=== PATIENT | female | born 1975 | race Caucasian/White ===

== ENCOUNTER 2019-04-16 17:22 | Emergency (ER) | payer MEDICAID, SELFPAY ==
[2019-04-16 17:35] VITALS: BP 136/89; PULSE 86; RESP 18; TEMP 36.5; O2SAT 98
[2019-04-16] MEDS: Ketorolac 30 MG/ML VIAL IVP (18:20)
--- NOTE | 2019-04-16 18:23 | DI.CT_ITS ---
EXAM: CT HEAD WO CLINICAL HISTORY: headache severe. TECHNIQUE: Imaging Protocol: Axial computed tomography images with coronal and sagittal reformatted images were created and reviewed COMPARISON: No exams were available for comparison FINDINGS: Ventricles and Extra axial spaces: Normal in size and morphology for the patient's age. Hemorrhage: None. Cerebral parenchyma: Normal. Midline shift: None. Brainstem/Cerebellum: Normal. Calvarium: Normal. Visualized Paranasal sinuses/Mastoids: Clear. IMPRESSION: Normal CT of the head. DATA REPOSITORY: All CT scans at this facility are submitted to the National Radiology Data Registry (NRDR) Dose Index Registry (DIR) with the [employer] ([employer]). RADIATION OPTIMIZATION: All CT scans at this facility use at least one of these dose optimization te chniques: automated exposure control; mA and/or kV adjustment per patient size (includes targeted exa ms where dose is matched to clinical indication); or iterative reconstruction.
--- NOTE | 2019-04-16 18:45 | DI.VRAD_ITS ---
PROCEDURE INFORMATION: Exam: CT Head Without Contrast Exam date and time: 04/16/2019 6:33 PM Age: 43 years old Clinical indication: Headache severe TECHNIQUE: Imaging protocol: Computed tomography of the head without contrast. Radiation optimization: All CT scans at this facility use at least one of these dose optimization techniques: automated exposure control; mA and/or kV adjustment per patient size (includes targeted exams where dose is matched to clinical indication); or iterative reconstruction. COMPARISON: No relevant prior studies available. FINDINGS: Brain: No intracranial hemorrhage or extra-axial fluid collection. No evidence of mass effect or midline shift. Riddle-white matter differentiation is intact. Ventricles: No ventriculomegaly. Bones/joints: No acute osseus lesion or fracture. Sinuses: Unremarkable as visualized. Mastoid air cells: Unremarkable. Soft tissues: Unremarkable. IMPRESSION: No acute intracranial pathology. Dictated and Authenticated by: Juan J Nieves MD. Ordering:PEGGY Ruth MD
[2019-04-16] MEDS: Normal Saline 1,000 ML 1000 ML IV (20:03)
--- NOTE | 2019-04-16 20:17 | ED.GENADUL_ITS ---
Discharge Plan Disposition Patient Disposition: HOME Condition: Stable Discharge Details Chief Complaint: Headache Clinical Impression: Headache, Hypotensive episode Primary Care Provider: None,None ED Provider: Faraz Caldwell Home Meds and New Rx's Prescriptions: No Action naproxen sodium [Aleve] 220 mg Capsule 440 mg PO PRN PRNRF: 0 Discharge Instructions Instructions: General Headache (ED) Additional Instructions: Drink plenty of fluid to stay hydrated. Rest over the next few days. Take Aleve or ibuprofen for headache. Dose according to label. Please contact your primary care physician to arrange follow-up. Call tomorrow. Return to the ER for any worsening or new concerning symptoms. Referrals: Kourtney Kruse [Emergency Nurse] - Discharge Data Discharge Date/Time-TO BE ENTERED AT DEPARTURE: 04/16/19 21:40 Medical Decision Making 20:20 -- 43-year-old female here with sudden onset severe headache yesterday, persistent headache overnight and then another severe episode today. Patient is neurologically intact. Hemodynamically stable. No fever or neck stiffness to suggest meningitis. Concern for potential subarachnoid hemorrhage. CT of the head was reviewed and interpreted by radiology: Negative for acute process. I reviewed the risk benefits of lumbar puncture with the patient. Patient provided informed consent to lumbar puncture. Lumbar puncture was performed and complicated by vagal response with hypotension at end of procedure. Patient's blood pressure did drop to 50 systolic. She was given 1 L crystalloid and BP responded. Patient maintained mentation during hypotensive episode. -- Patient reassessed and remains stable. CSF not consistent with SAH. Plan to ambulate and reassess. -- Patient reassessed and stable. Patient was encouraged to follow-up with PCP and to return for any worsening or new concerning symptoms. HPI General Mode of arrival: ambulatory . Date/Time Provider Initiated Documentation: 04/16/19 17:39 . Limitations to Documentation: no limitations . Information obtained by: patient . HPI Narrative: 43-year-old female presents with chief complaint of headache. Headache started suddenly yesterday around 7:30 PM. When headache came on it was severe 10 out of 10 pain. Pain felt like a squeezing pressure. Severe headache lasted about 30 minutes and then improved to mild headache which persisted through the night and earlier today. She had another 5-minute episode of severe headache around 4:00 today. She currently has moderate discomfort. Headache is localized to diffuse head. She has associated facial pain. No associated visual change. No numbness or weakness. No neck stiffness. No fevers. Patient does not typically have headaches and has never had a headache this severe. Related Data Home Medications Medication Instructions Recorded Confirmed naproxen sodium [Aleve] 440 mg PO PRN PRN 04/16/19 04/16/19 Allergies Allergy/AdvReac Type Severity Reaction Status Date / Time cephalexin [From Keflex] Allergy Unverified 04/16/19 17:44 General Stated Complaint: Headache JOAN: 2 Review of Systems All systems reviewed & are unremarkable except as noted in HPI and below Constitutional Constitutional: Denies fever(s) Neurologic Neurologic: Reports as per HPI [facility] Social History Smoking/Tobacco Use Status: Current every day Tobacco Type: cigarettes Alcohol Intake: current Alcohol Intake frequency: a few times a month Substance use type: does not use Do you feel safe at home: Yes Do you feel safe in your relationship?: Yes Exam Const General: cooperative and no acute distress HENMT Head: normocephalic and atraumatic Mouth: moist mucous membranes Eyes Conjunctivae: normal conjunctivae Sclera: normal sclerae Pupils: PERRL EOM: EOM intact bilaterally Direct ophthalmoscopy: normal light reflex and no papilledema Neck Neck: no meningeal signs, trachea midline and supple Resp Auscultation: clear to auscultation bilaterally, no rales, no rhonchi and no wheezes Cardio Jugular venous pressure: no JVD Rate: regular rate and not tachycardic Rhythm: regular rhythm GI Palpation: soft, not firm, no guarding, no masses, not rigid and nontender Skin General skin exam: no rashes or lesions noted Neuro General: alert, awake, oriented x3 and tone normal Cranial Nerves: CN's II-XI intact bilaterally Cognition: normal cognition Speech: speech normal Motor: strength 5/5 throughout Sensory Exam: no sensory deficits noted Extrem General: no edema Psych Appearance: grossly normal Mental Status: mental status grossly normal Speech and Movement: speech and movement normal Course Vital Signs Vital signs: Vital Signs Temperature 36.5 C 04/16/19 17:35 Pulse 86 04/16/19 17:35 Respiratory Rate 18 04/16/19 17:35 Blood Pressure 136/89 04/16/19 17:35 Pulse Oximetry 98 04/16/19 17:35 Temperature 36.5 C 04/16/19 17:35 Temperature Source Skin 04/16/19 17:35 Pulse 86 04/16/19 17:35 Respiratory Rate 18 04/16/19 17:35 Respiratory Effort Non-Labored 04/16/19 17:40 Blood Pressure 136/89 04/16/19 17:35 Blood Pressure Position Sitting 04/16/19 17:35 Pulse Oximetry 98 04/16/19 17:35 Oxygen Delivery Method Room Air 04/16/19 17:35 Oxygen Flow Rate 0 04/16/19 17:35 Pain Level 3 04/16/19 17:41 Lab/Test Results Lab/Test Results: 04/16/19 20:16 Cerebrospinal Fluid Body Fluid Culture - Pending 04/16/19 20:16 Cerebrospinal Fluid Gram Stain - Pending Procedures Lumbar Puncture Time Out Performed: Yes Patient Position: right lateral decubitus Skin Prep: Povidone-Iodine 1% Local Anesthetic: Lidocaine 1% Spinal Needle Gauge: 22G Interspace Used: L3-L4 Opening Pressure (cmH20): 17 Fluid Initially Obtained: clear Complications: other (vagal) Additional Comments: Initial single attempt made with 24-gauge Braxton was unsuccessful. Second attempt with 22-gauge quickie successful.
[2019-04-16 20:55] LABS: Clarity Clear; RBC 2 /mm3 (0-5); Tube # 4; WBC 1 /mm3 (0-5); Xanthochromia Absent
[2019-04-16] MEDS: Lactated Ringers 500 ML IV (20:55)
[2019-04-16 20:58] LABS: Glucose (CSF) 71 mg/dL (40-70)
[2019-04-16 21:16] LABS: Total Protein (CSF) 33 mg/dL (15-45)
[2019-04-16 21:19] VITALS: BP 115/67; PULSE 90; RESP 16; TEMP 36.4; O2SAT 98
--- NOTE | 2019-04-16 21:20 | NUR.NOTE ---
Nursing Note: Ortho static vitals assessed prior to DC. Lying HR: 94, BP 96/57 Sitting HR:90, BP 115/67 Standing HR: 94, BP: 111/61 Pt ambulated prior to DC, denied dizziness and weakness.
== END 2019-04-16 21:40 | disposition home or self-care (01) ==
PROVIDERS: Emergency Provider Student in an Organized Health Care Education/Training Program
DX: R51 Headache (principal); I95.9 Hypotension, unspecified
CPT/HCPCS: 62270; 82945; 89050; 89051; 96361; 96374; 99285; 70450; 84157; 87070; 87205; 99284; J1885